=== PATIENT | female | born 1995 | race Caucasian/White ===

== ENCOUNTER 2021-02-22 21:03 | Emergency (ER) | payer OTHER ==
--- NOTE | 2021-02-22 21:46 | EDM.PDOC ---
ED HPI GENERAL MEDICAL PROBLEM - General Chief Complaint: General Stated Complaint: right side mastitis Time Seen by Provider: 02/22/21 21:39 Source of Information: Reports: Patient History Limitations: Reports: No Limitations - History of Present Illness INITIAL COMMENTS - FREE TEXT/NARRATIVE: Patient not feeling well today. Headache. Took nap. Woke up with fever/chills. Has tenderness right breast. Delivered her baby one month ago. No other changes reported. Right Breast Pain Score (Numeric/FACES): 6 - Related Data Allergies Allergy/AdvReac Type Severity Reaction Status Date / Time No Known Allergies Allergy Verified 02/22/21 21:05 Home Meds: Home Meds Amoxicillin/Clavulanate K [Augmentin 500-125 MG] 1 tab PO Q8H #21 tab 02/22/21 [Rx] No122/Iron/Folic Acid [ Multi Tablet] 1 tab PO DAILY 02/22/21 [History] Past Medical History - Past Health History Medical/Surgical History: Denies Medical/Surgical History Social & Family History - Tobacco Use Tobacco Use Status *Q: Never Tobacco User - Caffeine Use Caffeine Use: Reports: Coffee, Soda ED ROS GENERAL - Review of Systems Review Of Systems: Comprehensive ROS is negative, except as noted in HPI. ED EXAM, GENERAL - Physical Exam Exam: See Below Exam Limited By: No Limitations General Appearance: Alert, WD/WN, No Apparent Distress Eye Exam: Bilateral Eye: EOMI, PERRL Ears: Hearing Grossly Normal Nose: No: Nasal Deformity, Nasal Swelling, Nasal Drainage Throat/Mouth: Normal Lips, Normal Voice, No Airway Compromise Head: Atraumatic, Normocephalic Neck: Supple, Full Range of Motion Respiratory/Chest: No Respiratory Distress, Lungs Clear Cardiovascular: Tachycardia GI/Abdominal: Soft (Female) Exam: Deferred Rectal (Female) Exam: Deferred Extremities: Normal Inspection Neurological: Alert, Oriented, Normal Cognition, Normal Gait, No Motor/Sensory Deficits Psychiatric: Normal Affect, Normal Mood Skin Exam: Warm, Dry, Other (mild redness/tenderness right breast) Course - Vital Signs Last Recorded V/S: Last Vital Signs Temp 39.2 C H 02/22/21 21:10 Pulse 112 H 02/22/21 21:10 Resp 16 02/22/21 21:10 BP 126/81 02/22/21 21:10 Pulse Ox 100 02/22/21 21:10 - Orders/Labs/Meds Meds: Medications Discontinued Medications Generic Name Dose Route Start Last Admin Trade Name Franky PRN Reason Stop Dose Admin Amoxicillin/Clavulanate Potassium 1 tab 02/22/21 21:48 02/22/21 22:14 Amoxicillin/Clavulanate K 875-125 Mg Tab PO 02/22/21 21:49 1 tab ONETIME ONE Administration Ceftriaxone Sodium 1 gm 02/22/21 21:46 02/22/21 22:15 Ceftriaxone 1 Gm Vial IM 02/22/21 21:47 1 gm ONETIME ONE Administration Lidocaine HCl Confirm 02/22/21 22:06 02/22/21 22:23 Lidocaine 1% 5 Ml Sdv Administered 02/22/21 22:07 Not Given Dose 5 ml .ROUTE .STK-MED ONE Lidocaine HCl 5 ml 02/22/21 21:48 02/22/21 22:14 Lidocaine 1% 5 Ml Sdv INJECT 02/22/21 21:49 2.1 ml ONETIME ONE Administration - Re-Assessments/Exams Free Text/Narrative Re-Assessment/Exam: 02/22/21 22:52 Suspect developing mastitis. IM Rocephin given in ER along with single dose Augmentin. Patient to roll picker rest of Augmentin tomorrow at pharmacy/1 week course. To observe for changes and follow up as needed if worsening symptoms develop. Departure - Departure Time of Disposition: 21:40 Disposition: Home, Self-Care 01 Condition: Good Clinical Impression: Mastitis, right, acute - Discharge Information *PRESCRIPTION DRUG MONITORING PROGRAM REVIEWED*: Not Applicable *COPY OF PRESCRIPTION DRUG MONITORING REPORT IN PATIENT KASANDRA: Not Applicable Prescriptions: Amoxicillin/Clavulanate K [Augmentin 500-125 MG] 1 tab PO Q8H #21 tab Instructions: Mastitis Referrals: Nay Moreno MD [Primary Care Provider] - Forms: ED Department Discharge Additional Instructions: It is ok to continue to breast feed. set up machinist Augmentin tomorrow. Follow up for recheck if you have further problems. Sepsis Event Note (ED) - Evaluation Sepsis Screening Result: Possible Sepsis Risk - Focused Exam Vital Signs: Vital Signs Temp Pulse Resp BP Pulse Ox 02/22/21 21:10 39.2 C H 112 H 16 126/81 100
[2021-02-22] MEDS: Amoxicillin/Clavulanate K 875-125 MG Tab PO ONE (22:14)
[2021-02-22] MEDS: cefTRIAXone 1 GM Vial IM ONE (22:15)
== END 2021-02-22 22:20 | disposition home or self-care (01) ==
LOC: LL.ED 21:03
DX: N61.0 Mastitis without abscess (principal)
CPT/HCPCS: 96372; 99283; A9270; J0696